=== PATIENT | male | born 1990 | race Caucasian/White ===

== ENCOUNTER 2017-10-25 18:13 | Emergency (ER) | payer OTHER ==
[2017-10-25 18:30] VITALS: BP 99/76
--- OUTSIDE RECORDS SUMMARY | 2017-10-25 18:34 | XMS REPORT ---
:1990 External Reference #:[id number] Author Organization [employer] Address [address] [address] Phone [phone] Care Team Providers Name Role Phone Patient's Choice Primary Care Physician Unavailable Payers Type Date Identification Numbers Payment Provider Subscriber Other PayID: [id number] Cont: [facility] Pankaj Valenzuela [address] [place] [address] Problems Description No Information Family History Date Family Member(s) Problem(s) Comments General No Current Problems Social History Type Date Description Comments ETOH Use Denies alcohol use Smoking Patient has never smoked Recreational Drug Use Denies Drug Use Allergies, Adverse Reactions, Alerts Date Description Reaction Status Severity Comments 10/10/2017 NKDA active Medications Medication Date Status Form Strength Qnty SIG Indications Ordering Provider No Active 10/10/2017 Active Unknown Medications Vital Signs Date Vital Result Comment 10/10/2017 Height 70 inches 5'10" Weight 152.00 lb Heart Rate 74 /min BP Systolic 130 mmHg BP Diastolic 80 mmHg Body Temperature 97.6 F O2 % BldC Oximetry 99 % BMI (Body Mass Index) 21.8 kg/m2 Results Description No Information Procedures Description No Information Plan of Care 10/10/2017 - Popeye Rodriguez M.D.[id number] Encntr for general adult medical exam w/o abnormal findingsComments:You should have yearly Flu shot and T dap every 10 years. Exercise 30mts/day 5 times a week,Use sun screen, to prevent skin cancer discussed.Self testicular exam once a month during shower to feel for lumps or bumps
--- NOTE | 2017-10-25 20:55 | UC ---
Colten Giraldo Angela, scribed for Guido Bray MD on 10/25/17 at 1844 . Abdominal Pain Male HPI - HPI Summary HPI Summary: This pt is a 26 y/o male presenting to [facility] c/o abdominal pain since yesterday. Pt reports his pain has been worsening since yesterday and today it is worse. He describes his pain is located on the right side of his abdomen. He rates his pain 10/10 in severity. Pt additionally notes nausea. Denies vomiting, fever. Denies any PMHx. - History of Current Complaint Chief Complaint: UCAbdominalPain Stated Complaint: ABDOMINAL PAIN Time Seen by Provider: 10/25/17 18:33 Hx Obtained From: Patient Onset/Duration: Lasting Days, Still Present Timing: Constant Severity Currently: Severe Pain Intensity: 10 Pain Scale Used: 0-10 Numeric Location: Discrete At: RUQ, Discrete At: RLQ Radiates: No Aggravating Factor(s): Nothing Alleviating Factor(s): Nothing Associated Signs And Symptoms: Positive: Nausea. Negative: Fever, Vomiting - Allergies/Home Medications Allergies/Adverse Reactions: Allergies Allergy/AdvReac Type Severity Reaction Status Date / Time No Known Allergies Allergy Verified 10/25/17 18:29 PMH/Surg Hx/FS Hx/Imm Hx Other Endocrine History: DENIES: diabetes Other Cardiovascular History: DENIES: HTN - Surgical History Surgical History: None - Family History Known Family History: Negative: Cardiac Disease, Hypertension, Diabetes - Social History Alcohol Use: None Substance Use Type: None Smoking Status (MU): Never Smoked Tobacco Review of Systems Constitutional: Negative Skin: Negative Eyes: Negative ENT: Negative Respiratory: Negative Gastrointestinal: Abdominal Pain, Nausea, Other - NEG: vomiting Genitourinary: Negative Motor: Negative Neurovascular: Negative Musculoskeletal: Negative Neurological: Negative Psychological: Negative Is Patient Immunocompromised?: No All Other Systems Reviewed And Are Negative: Yes Physical Exam - Summary Physical Exam Summary: VITAL SIGNS: Reviewed. GENERAL: Patient is a well-developed and nourished male who is lying comfortable in the stretcher. Patient is not in any acute respiratory distress. HEAD AND FACE: Normocephalic EYES: PERRLA, EOMI x 2. EARS: Hearing grossly intact. MOUTH: Oropharynx within normal limits. NECK: Supple, trachea is midline, no adenopathy, no JVD, no carotid bruit. CHEST: Symmetric, no tenderness at palpation LUNGS: Clear to auscultation bilaterally. No wheezing or crackles. CVS: Regular rate and rhythm, S1 and S2 present, no murmurs or gallops appreciated. ABDOMEN: Soft. RUQ and RLQ tenderness. Bowel sounds are normal. No abdominal abnormal pulsations. EXTREMITIES: Full ROM in all major joints, no edema, no cyanosis or clubbing. NEURO: Alert and oriented x 3. No acute neurological deficits. Speech is normal and follows commands. SKIN: Dry and warm Triage Information Reviewed: Yes Vital Signs: Initial Vital Signs Temp 99.3 F 10/25/17 18:25 Pulse 134 10/25/17 18:25 Resp 18 10/25/17 18:25 BP 99/76 10/25/17 18: Pulse Ox 100 10/25/17 18:25 Vital Signs Reviewed: Yes Abd Pain Male Course/Dx - Course Course Of Treatment: This pt is a 26 y/o male presenting to [facility] c/o abdominal pain since yesterday. Pt reports his pain has been worsening since yesterday and today it is worse. He describes his pain is located on the right side of his abdomen. He rates his pain 10/10 in severity. Pt additionally notes nausea. Denies vomiting, fever. Denies any PMHx. Pt is in severe pain and has tenderness in the RUQ and RLQ. He was instructed to go directly to the ED for further assessment. Pt was offered ambulance but he declines. Pt will go to the emergency department via private car. Plan of care was discussed with the patient and pt understands and agrees. I discussed pt care with Dr. Oh, provider from the ED, and he is aware of the pt going to the ED. Pt will be discharged to go directly to the ED. Pt is hemodynamically stable, alert and oriented x3. - Differential Dx/Clinical Impression Provider Diagnoses: Abdominal pain - Physician Notification/Consults Discussed Patient Care With: Jonathan Oh Time Discussed With Above Provider: 18:47 Instructed by Provider To: Other - I discussed pt care with Dr. Oh, provider from the ED, and he is aware of the pt going to the ED. Discharge - Sign-Out/Discharge Documenting (check all that apply): Discharge/Admit/Transfer - Discharge - Discharge Plan Condition: Stable Disposition: HOME Patient Education Materials: Abdominal Pain (ED) Referrals: [facility] [place] [facility] REFERRAL [Outside] No Primary Care Phys,NOPCP [Primary Care Provider] - Additional Instructions: Patient discharged to the ED. Declined ambulance. The documentation as recorded by the Colten esteves Angela accurately reflects the service I personally performed and the decisions made by Asa lebron Walter, MD.
== END 2017-10-25 18:45 | disposition home or self-care (01) ==
LOC: UCEAST 18:13
DX: R10.11 Right upper quadrant pain (principal); R10.31 Right lower quadrant pain; R11.0 Nausea
CPT/HCPCS: 99212; G0463

== ENCOUNTER 2017-10-25 19:02 | Emergency (ER) | payer BC, OTHER ==
[2017-10-25] MEDS ORDERED: Metoclopramide IV* 5 MG/ML 2 ML VIAL IV ONE (19:40)
[2017-10-25] MEDS ORDERED: Ketorolac INJ* 30 MG/ML 1 ML VIAL IV PUSH ONE (19:40)
[2017-10-25] MEDS ORDERED: NS 0.9% 1000 ML* 1,000 ML IV ONE (19:40)
[2017-10-25 20:21] LABS: ABS Basophils 0 10^3/ul (0-0.2); ABS Eosinophils 0.1 10^3/ul (0-0.6); ABS Lymphocytes 1.1 10^3/ul (1.0-4.8); ABS Monocytes 0.5 10^3/ul (0-0.8); ABS Neutrophils 11.7 10^3/ul (1.5-7.7); ABS Nucleated RBC 0 10^3/ul; Eosinophil % 0.5 % (0-6); Hematocrit 47 % (42-52); Hemoglobin 16.2 g/dl (14.0-18.0); Lymphocyte % 8.2 % (25-47); Mean Corpuscular HGB Conc 34 g/dl (31-36); Mean Corpuscular Hemoglobin 30 pg (27-31); Mean Corpuscular Volume 87 fL (80-94); Mean Platelet Volume 9.4 um3 (7.4-10.4); Nucleated Red Blood Cells % 0; Platelet Count 199 10^3/ul (150-450); Red Blood Count 5.47 10^6/ul (4.0-5.4); Red Cell Distribution Width 13 % (10.5-15); White Blood Count 13.4 10^3/ul (3.5-10.8)
[2017-10-25 20:49] LABS: EGFR Non-African American 70.4 (>60)
[2017-10-25] MEDS ORDERED: Iohexol 300* (CONTRAST) 10 ML SDV IV ONE (21:10)
[2017-10-25 21:11] LABS: Urine Appearance Clear; Urine Blood Negative (Negative); Urine Color Straw; Urine Ketones Trace (Negative); Urine Protein 2+(100 mg/dL) (Negative); Urine Red Blood Cell Absent (Absent); Urine Specific Gravity 1.009 (1.010-1.030); Urine Urobilinogen Negative (Negative); Urine White Blood Cell Absent (Absent)
--- NOTE | 2017-10-25 22:06 | RAD ---
INDICATION: RIGHT upper quadrant pain since yesterday. COMPARISON: December 03, 2013 RIGHT upper quadrant ultrasound. TECHNIQUE: Multidetector CT images were obtained from the lung bases to the ischial tuberosities with 91 mL Omnipaque 300 IV and oral contrast. Multiplanar reformation. REPORT: Unremarkable visualized inferior thorax. The liver, gallbladder, pancreas, and spleen are unremarkable. Enteric contrast extends to the sigmoid colon. No CT abnormality of the upper GI, small bowel, or retrocecal appendix which is visualized at the level of the caudal aspect of Morison's pouch. No CT abnormality of the colon. Negative for ascites, free air, hernias. Normal adrenal glands. Normal variant LEFT extrarenal pelvis. Negative for hydronephrosis. Symmetric nephrograms and pyelograms. Negative for focal renal lesions. No suspicious finding along the course of the nondilated ureters. Unremarkable urinary bladder. Symmetric seminal vesicles. LEFT pelvic phlebolith noted. Negative for lymphadenopathy. Normal diameter abdominal aorta and iliac arteries. Physiologic distention of the IVC. Chronic appearing bilateral L5 spondylolysis with grade 2 L5-S1 anterolisthesis. Resulting uncovering of the L5-S1 intervertebral disc and mild disc bulge. Moderate bilateral L5-S1 foraminal stenosis. Negative for suspicious focal osseous lesions. IMPRESSION: 1. Normal appendix documented. 2. No etiology for RIGHT upper quadrant pain evident.
[2017-10-25 23:46] VITALS: BP 124/74
--- NOTE | 2017-10-26 06:23 | ED ---
Leonides Giraldo Rebecca, scribed for Wendy Becerra MD on 10/25/17 at 1939 . Abdominal Pain/Male - HPI Summary HPI Summary: Pt is a 26 y/o M referred from [facility] who presents to ED c/o abdominal pain. Sx began yesterday and worsened today after work. Pain is in the RUQ and umbilical regions and is currently severe, ranked 9/10. Pain described as sharp and cramping. Sx aggravated by walking, alleviated by nothing. Denies N/V/D, blood in stool. No prior similar episodes of this severity, though he has had " stomach pain" in the past. Last BM today. No PMHx abdominal disease, including GERD and pancreatitis. - History of Current Complaint Chief Complaint: EDAbdPain Stated Complaint: ABD PAIN Time Seen by Provider: 10/25/17 19:24 Hx Obtained From: Patient Onset/Duration: Lasting Days - Started yesterday, Still Present Severity Currently: Severe Pain Intensity: 9 Pain Scale Used: 0-10 Numeric Location: Discrete At: RUQ, Umbilical Character: Sharp, Cramping Aggravating Factor(s): Other: - Walking Alleviating Factor(s): Nothing Associated Signs And Symptoms: Negative: Blood in Stool, Nausea, Vomiting, Diarrhea - Allergies/Home Medications Allergies/Adverse Reactions: Allergies Allergy/AdvReac Type Severity Reaction Status Date / Time No Known Allergies Allergy Verified 10/25/17 18:29 PMH/Surg Hx/FS Hx/Imm Hx Endocrine/Hematology History: Denies: Hx Diabetes, Hx Thyroid Disease Cardiovascular History: Denies: Hx Hypertension Respiratory History: Denies: Hx Asthma, Hx Chronic Obstructive Pulmonary Disease (COPD) GI History: Denies: Hx Ulcer Infectious Disease History: No Infectious Disease History: Denies: Hx Hepatitis, Hx Human Immunodeficiency Virus (HIV), History Other Infectious Disease, Traveled Outside the [place] in Last 30 Days - Family History Known Family History: Negative: Cardiac Disease, Hypertension, Diabetes - Social History Alcohol Use: None Substance Use Type: Reports: None Smoking Status (MU): Never Smoked Tobacco Review of Systems Positive: Abdominal Pain. Negative: Vomiting, Diarrhea, Nausea Positive: other - NEGATIVE: Blood in stool All Other Systems Reviewed And Are Negative: Yes Physical Exam - Summary Physical Exam Summary: GENERAL: ~Patient is a well developed and nourished M who is lying comfortable in the stretcher. ~Patient is not in any acute respiratory distress. HEAD AND FACE: Normocephalic EYES: PERRLA, EOMI x 2. EARS: Hearing grossly intact. MOUTH: Oropharynx within normal limits. NECK: Supple, trachea is midline, no adenopathy, no JVD, no carotid bruit. CHEST: Symmetric, no tenderness at palpation LUNGS: Clear to auscultation bilaterally. No wheezing or crackles. CVS: Regular rate and rhythm, S1 and S2 present, no murmurs or gallops appreciated. ABDOMEN: Soft, tender to palpation in the RLQ, RUQ and periumbilical regions. Bowel sounds are normal. No abdominal abnormal pulsations. EXTREMITIES: Full ROM in all major joints, no edema, no cyanosis or clubbing. NEURO: Alert and oriented x 3. No acute neurological deficits. Speech is normal and follows commands. SKIN: Dry and warm Triage Information Reviewed: Yes Vital Signs On Initial Exam: Initial Vitals Temp Pulse Resp BP Pulse Ox 99.6 F 101 16 136/83 99 10/25/17 19:14 10/25/17 19:14 10/25/17 19:14 10/25/17 19:14 10/25/17 19:14 Vital Signs Reviewed: Yes Diagnostics - Vital Signs Vital Signs Temp Pulse Resp BP Pulse Ox 10/25/17 19:14 99.6 F 101 16 136/83 99 - Laboratory Lab Results: Lab Results 10/25/17 10/25/17 10/25/17 Range/Units 20:11 20:11 20:11 WBC 13.4 H (3.5-10.8) 10^3/ul RBC 5.47 H (4.0-5.4) 10^6/ul Hgb 16.2 (14.0-18.0) g/dl Hct 47 (42-52) % MCV 87 (80-94) fL MCH 30 (27-31) pg MCHC 34 (31-36) g/dl RDW 13 (10.5-15) % Plt Count 199 (150-450) 10^3/ul MPV 9.4 (7.4-10.4) um3 Neut % (Auto) 87.1 H (38-83) % Lymph % (Auto) 8.2 L (25-47) % Millard % (Auto) 3.9 (0-7) % Eos % (Auto) 0.5 (0-6) % Baso % (Auto) 0.3 (0-2) % Absolute Neuts (auto) 11.7 H (1.5-7.7) 10^3/ul Absolute Lymphs (auto) 1.1 (1.0-4.8) 10^3/ul Absolute Monos (auto) 0.5 (0-0.8) 10^3/ul Absolute Eos (auto) 0.1 (0-0.6) 10^3/ul Absolute Basos (auto) 0 (0-0.2) 10^3/ul Absolute Nucleated RBC 0 10^3/ul Nucleated RBC % 0 Sodium 141 (139-145) mmol/L Potassium 4.1 (3.5-5.0) mmol/L Chloride 102 (101-111) mmol/L Carbon Dioxide 30 (22-32) mmol/L Anion Gap 9 (2-11) mmol/L BUN 19 (6-24) mg/dL Creatinine 1.25 H (0.67-1.17) mg/dL Est GFR ( Amer) 90.5 (>60) Est GFR (Non-Af Amer) 70.4 (>60) BUN/Creatinine Ratio 15.2 (8-20) Glucose 98 (70-100) mg/dL Lactic Acid 1.2 (0.5-2.0) mmol/L Calcium 9.9 (8.6-10.3) mg/dL Total Bilirubin 0.50 (0.2-1.0) mg/dL AST 19 (13-39) U/L ALT 13 (7-52) U/L Alkaline Phosphatase 79 (34-104) U/L C-Reactive Protein < 1.00 (< 5.00) mg/L Total Protein 7.7 (6.4-8.9) g/dL Albumin 4.6 (3.2-5.2) g/dL Globulin 3.1 (2-4) g/dL Albumin/Globulin Ratio 1.5 (1-3) Lipase 18 (11.0-82.0) U/L Urine Color Urine Appearance Urine pH (5-9) Ur Specific Mccune (1.010-1.030) Urine Protein (Negative) Urine Ketones (Negative) Urine Blood (Negative) Urine Nitrate (Negative) Urine Bilirubin (Negative) Urine Urobilinogen (Negative) Ur Leukocyte Esterase (Negative) Urine WBC (Auto) (Absent) Urine RBC (Auto) (Absent) Urine Bacteria (Absent) Urine Glucose (Negative) 10/25/17 Range/Units 20:47 WBC (3.5-10.8) 10^3/ul RBC (4.0-5.4) 10^6/ul Hgb (14.0-18.0) g/dl Hct (42-52) % MCV (80-94) fL MCH (27-31) pg MCHC (31-36) g/dl RDW (10.5-15) % Plt Count (150-450) 10^3/ul MPV (7.4-10.4) um3 Neut % (Auto) (38-83) % Lymph % (Auto) (25-47) % Millard % (Auto) (0-7) % Eos % (Auto) (0-6) % Baso % (Auto) (0-2) % Absolute Neuts (auto) (1.5-7.7) 10^3/ul Absolute Lymphs (auto) (1.0-4.8) 10^3/ul Absolute Monos (auto) (0-0.8) 10^3/ul Absolute Eos (auto) (0-0.6) 10^3/ul Absolute Basos (auto) (0-0.2) 10^3/ul Absolute Nucleated RBC 10^3/ul Nucleated RBC % Sodium (139-145) mmol/L Potassium (3.5-5.0) mmol/L Chloride (101-111) mmol/L Carbon Dioxide (22-32) mmol/L Anion Gap (2-11) mmol/L BUN (6-24) mg/dL Creatinine (0.67-1.17) mg/dL Est GFR ( Amer) (>60) Est GFR (Non-Af Amer) (>60) BUN/Creatinine Ratio (8-20) Glucose (70-100) mg/dL Lactic Acid (0.5-2.0) mmol/L Calcium (8.6-10.3) mg/dL Total Bilirubin (0.2-1.0) mg/dL AST (13-39) U/L ALT (7-52) U/L Alkaline Phosphatase (34-104) U/L C-Reactive Protein (< 5.00) mg/L Total Protein (6.4-8.9) g/dL Albumin (3.2-5.2) g/dL Globulin (2-4) g/dL Albumin/Globulin Ratio (1-3) Lipase (11.0-82.0) U/L Urine Color Straw Urine Appearance Clear Urine pH 7.0 (5-9) Ur Specific Mccune 1.009 L (1.010-1.030) Urine Protein 2+(100 mg/dl) A (Negative) Urine Ketones Trace A (Negative) Urine Blood Negative (Negative) Urine Nitrate Negative (Negative) Urine Bilirubin Negative (Negative) Urine Urobilinogen Negative (Negative) Ur Leukocyte Esterase Negative (Negative) Urine WBC (Auto) Absent (Absent) Urine RBC (Auto) Absent (Absent) Urine Bacteria Absent (Absent) Urine Glucose Negative (Negative) Result Diagrams: 10/25/17 20:11 10/25/17 20:11 Lab Statement: Any lab studies that have been ordered have been reviewed, and results considered in the medical decision making process. - CT CT Abd/pel CT Interpretation: No Acute Changes - 1. Normal appendix documented. 2. No etiology for RIGHT upper quadrant pain evident. ED physician reviewed this radiology report. CT Interpretation Completed By: Radiologist Re-Evaluation - Re-Evaluation First Eval Re-Evaluation Time: 23:26 Change: Improved Comment: Pt is feeling much better. Discussed results. Abdominal Pain Fem Course/Dx - Course Assessment/Plan: 26 y/o M presents with abdominal pain. Workup remarkable for mild elevated creatinine at 1.25 with protein in urine without any evidence of infection. CT abd/pel shows no acute etiology. On reevaluation, pt is much improved. Will send home on Protnix and will f/u with PCP for repeat kidney function. - Diagnoses Provider Diagnoses: Abdominal pain Discharge - Sign-Out/Discharge Documenting (check all that apply): Discharge/Admit/Transfer - Discharge - Discharge Plan Condition: Stable Disposition: HOME Prescriptions: Pantoprazole Sodium [Protonix] 20 mg PO ONCE #30 tablet. Patient Education Materials: Acute Abdominal Pain (ED), Impaired Kidney Function (ED) Referrals: Maikel Benton MD [Medical Doctor] - [facility] [place] [facility] REFERRAL [Outside] (Follow up for repeat kidney function labs. ) - Billing Disposition and Condition Condition: STABLE Disposition: HOME The documentation as recorded by the Leonides esteves Rebecca accurately reflects the service I personally performed and the decisions made by me, Wendy Becerra MD.
== END 2017-10-25 23:45 | disposition home or self-care (01) ==
LOC: ED 19:02
DX: R10.11 Right upper quadrant pain (principal); R10.33 Periumbilical pain; R10.31 Right lower quadrant pain; R80.9 Proteinuria, unspecified; R79.89 Other specified abnormal findings of blood chemistry
CPT/HCPCS: 36415; 74177; 80053; 81003; 81015; 83605; 83690; 85025; 86140; 96374; 96375; 99283; J1885; J2765; Q9967